=== PATIENT | male | born 1970 | race Caucasian/White ===

== ENCOUNTER 2024-01-05 12:53 | Emergency (ER) | payer BC, SELFPAY ==
[2024-01-05 12:58] VITALS: BP 145/92
[2024-01-05 13:26] VITALS: BP 145/85
[2024-01-05 14:00] VITALS: BP 139/90
[2024-01-05 15:00] VITALS: BP 138/84
[2024-01-05 15:06] VITALS: BP 145/92
[2024-01-05 15:46] VITALS: BP 145/92; PULSE 70; O2SAT 99
--- NOTE | 2024-01-05 16:35 | ED.GENMED ---
History of Present Illness
General
Chief Complaint: Dizziness
Source: patient
Time Seen by Provider: 01/05/24 14:11
History of Present Illness
History of Present Illness:
53-year-old male who arrives with dizziness. Symptoms started last night. Stated that it was mild and worse when he sat up. States has had vertigo in the past. [place] it coming on yesterday and was hoping that if he laid still it would improve but
today persisted and decided come for evaluation. Patient does admit to nausea vomiting associated with it. States symptoms are worse when he rotates head or sits up. No headache. No vision changes. No motor weakness. No chest pain. No
palpitations. No tenderness, no hearing loss
Past History
Past History
ED Past Medical History: HTN, Hypercholesterolemia and Other (Vertigo, 'lazy eye (left)')
Phy Exam
Physical Exam
Physical Exam:
CONSTITUTIONAL Patient alert and oriented to person, place and time. Well-appearing. Vital signs reviewed.
HEAD atraumatic, normocephalic.
EYES eyelids normal to inspection, Extraocular muscles intact, Conjunctiva normal, Sclera normal. No nystagmus noted
ENT TMs normal bilaterally
NECK normal range of motion, Trachea midline, no jugular venous distention.
RESPIRATORY CHEST No respiratory distress noted, Chest expansion equal, Bilateral breath sounds clear.
CARDIOVASCULAR regular rate and rhythm, Heart sounds normal.
BACK normal inspection, no obvious deformities
UPPER EXTREMITY range of motion normal, Motor strength normal, no cyanosis, no edema.
LOWER EXTREMITY range of motion normal, Motor strength normal, no cyanosis, no edema.
NEURO Speech normal, No focal motor deficits, Tyler coma scale 15, Memory normal, Cranial Nerves intact to screening exam. Normal finger-nose, normal [id number], no pronator
SKIN skin warm, dry, and normal in color.
Course
Orders/Labs/Results
Orders:
Orders
01/05/24 14:32
PT Consult [Pt Eval And Treat] Urgent
Activity Level: Out of Bed- Ad Zahra
01/05/24 15:42
CT Head W/o Iv Contrast Urgent
Comment:
Reason For Exam: dizziness
Vital Signs
Initial and Last Documented VS:
Initial Vital Signs
Temp Pulse Resp BP Pulse Ox
97.8 F 71 16 145/92 100
01/05/24 12:58 01/05/24 12:58 01/05/24 12:58 01/05/24 12:58 01/05/24 12:58
Last Documented Vital Signs
Temp Pulse Resp BP Pulse Ox
97.8 F 71 16 145/92 100
01/05/24 12:58 01/05/24 12:58 01/05/24 12:58 01/05/24 15:06 01/05/24 12:58
MDM/Problems Addressed
Differential Diagnosis Includes:
Central vertigo, peripheral vertigo, M�ni�re's disease, benign positional vertigo, electrolyte balance, vestibular neuritis
MDM/Problems Addressed:
Vertigo
*Radiology
Radiology exam reviewed: preliminary read by ED provider (No obvious intracranial hemorrhage) and radiology read reviewed
*Pulse Oximetry
Patient hypoxic: no
*Kidney Trimmer Interpretation
Rate: normal
Interpretation: normal
Rhythm: sinus
*Critical Care Note
Total Time (30-74mins, 75-104mins- exclusive of procedures): Not Applicable
Data Reviewed
Source: patient and family
Prescriptions/Medications Considered But Not Given:
Consider steroids but do not suspect vestibular neuritis
Patient Management
Escalation/DeEscalation of care consider admission/obs:
53-year-old male who presents with room spinning dizziness. Seen by PT. Does feel better on reassessment. Will treat with as needed meclizine. CT neuroexam normal. Okay for discharge outpatient follow-up
ED Attending Note
-
Portions of this chart may have been created with voice recognition software.� Occasional wrong word or��sound alike� substitutions may have occurred due to the inherent limitations of voice recognition software.
Discharge Plan
Departure
Patient Disposition: Home (Routine Discharge)
Date of Disposition: 01/05/24
Time of Disposition: 16:36
Patient with high blood pressure during this ER visit?: Yes
Discharge Problem:
Vertigo
Instructions: Vertigo (a Type of Dizziness) (DC), BLOOD PRESSURE
Prescriptions:
New
meclizine 25 mg tablet
25 mg PO TID PRN (Reason: dizziness) Qty: 20 0RF
Referrals:
Beatriz Parmar DO [Family Provider] -
Activity Restrictions/Additional Instructions:
Please see your doctor in the next 1 week for follow-up and reevaluation., Vision changes, headache, worsening symptoms, fevers or any other concerns. Please also follow-up with physical therapy as advised for further management of your vertigo
Interventions
Interventions:
*Risk Screen - Suicide Last Done: 01/05/24 12:58
*General Assessment Last Done: 01/05/24 13:23
*Neglect/Abuse Screening Last Done: 01/05/24 12:58
ED- Fall Risk Assessment Last Done: 01/05/24 13:23
*ED COVID-19 Vaccine History Last Done: 01/05/24 13:23
*Nursing Disposition Last Done: 01/05/24 16:42
ED- Neurological Assessment Last Done: 01/05/24 13:23
ED- Cardiac Assessment Last Done: 01/05/24 16:42
ED Swallowing Screen Last Done: 01/05/24 13:23
Discharge Date and Time
Discharge Date/Time: 01/05/24 16:45
Print Language: GEORGIAN
== END 2024-01-05 16:45 | disposition home or self-care (01) ==
LOC: EMR 12:53
PROVIDERS: EMERGENCY PHYSICIAN Emergency Medicine; FAMILY PHYSICIAN Family Medicine
DX: R42 Dizziness and giddiness (principal); I10 Essential (primary) hypertension
CPT/HCPCS: 99284; 70450

== ENCOUNTER 2024-01-15 08:39 | Outpatient (RCR) | payer BC, SELFPAY | END 2024-01-15 23:59 | disposition home or self-care (01) | LOC: RPT 08:39 | PROVIDERS: ATTENDING PHYSICIAN Family Medicine | DX: R42 Dizziness and giddiness (principal); Z73.6 Limitation of activities due to disability | CPT/HCPCS: 97112; 97163 ==

== ENCOUNTER 2024-08-22 06:18 | Day surgery (SDC) | payer BC, SELFPAY | END 2024-08-22 09:21 | disposition home or self-care (01) | LOC: GI 06:18 | PROVIDERS: ATTENDING PHYSICIAN Internal Medicine Gastroenterology; FAMILY PHYSICIAN Family Medicine | DX: Z12.11 Encounter for screening for malignant neoplasm of colon (principal); K52.9 Noninfective gastroenteritis and colitis, unspecified; D12.4 Benign neoplasm of descending colon; K63.89 Other specified diseases of intestine; K57.30 Diverticulosis of large intestine without perforation or abscess without bleeding; K64.8 Other hemorrhoids; Z86.0100 Personal history of colon polyps, unspecified | CPT/HCPCS: 45385; 45380; 88305 ==

== ENCOUNTER → 2024-09-15 14:06 | Outpatient (REF) | payer BC, SELFPAY ==
[2024-09-15 15:30] LABS: C-Reactive Protein < 5.00 mg/L (0.0-10.00)
== END ==
LOC: REG 14:06
PROVIDERS: ATTENDING PHYSICIAN Internal Medicine Gastroenterology; FAMILY PHYSICIAN Family Medicine
DX: K52.9 Noninfective gastroenteritis and colitis, unspecified (principal)
CPT/HCPCS: 36415; 86140

== ENCOUNTER → 2024-09-16 07:53 | Outpatient (REF) | payer BC, SELFPAY | LOC: REG 07:53 | PROVIDERS: ATTENDING PHYSICIAN Internal Medicine Gastroenterology; FAMILY PHYSICIAN Family Medicine | DX: K52.9 Noninfective gastroenteritis and colitis, unspecified (principal) | CPT/HCPCS: 83993 ==